=== PATIENT | female | born 1930 | race Caucasian/White ===

== ENCOUNTER → 2017-09-29 | Outpatient (CLI) | END | disposition home or self-care (01) ==

== ENCOUNTER → 2017-10-20 | Outpatient (CLI) | END | disposition home or self-care (01) ==

== ENCOUNTER → 2017-11-24 | Outpatient (CLI) | END | disposition home or self-care (01) ==

== ENCOUNTER 2017-12-04 08:58 | Inpatient (IN) | END 2017-12-07 18:53 | DRG 467 ==

== ENCOUNTER 2017-12-17 16:39 | Inpatient (IN) | END 2017-12-20 19:00 | DRG 208 ==

== ENCOUNTER 2017-12-25 17:25 | Inpatient (IN) | END 2017-12-30 18:15 | DRG 466 ==

== ENCOUNTER 2017-12-30 18:33 | Inpatient (IN) | END 2018-01-16 13:50 | disposition home health service (06) | DRG 559 ==

== ENCOUNTER → 2018-03-13 | Outpatient (CLI) | payer MEDICARE, BC, MEDICAID ==
[~2018-03-13] MED LIST: ACET325T33 PO; ASPI-817 PO; CELE100C PO; DOCU-144 PO; FERR324T11 PO; GABA100C14 PO; HYDR25TA6 PO; LISI-471 PO; MULT-876 PO; PANT40TA4 PO
--- NOTE | 2018-03-13 14:21 | PN ---
Date/Time of Note Date/Time of Note DATE: 03/13/18 TIME: 14:17 Outpatient Progress Note Chief Complaint 2-month postop HPI 87-year-old female presents today for 2-month postoperative appointment status post right total hip revision with placement of constrained liner on 12/30/2017. Patient continues with severe pain that she states occurs at night after a full day of activity. Patient states that she is unable to ambulate independently as she needs front wheeled walker. Pain is overall controlled during the day. No falls or injury since she was last seen. No calf pain. Review of Systems Const: No Fever, no chills, no Fatigue, normal appetite, no diaphoresis. Resp: No SOB, no wheezing, no chest pain. CV: No chest pain, no palpitaions, no VIDAL. Physical Exam General Appearance: well-developed, well-nourished, in no acute distress. Right hip: Well-healed surgical scar to the right hip. While sitting patient is able to flex an additional 10-15 degrees with 4/5 strength on resistance with give way weakness on flexion and extension. Abnormal gait with assisted ambulation using front-wheeled walker. Limping gait to the right side. When asked, patient states that pain is local to the greater trochanteric region and traveling along the IT band. Denies any groin pain. Imaging: X-ray of the Right hip performed on 03/13/18 showing all components appearing well aligned, attached and integrated to the bone. No signs of any lucency between metal and bone. Allergies Coded Allergies: No Known Drug Allergy (Verified Allergy, Unknown, 12/25/17) Family Hx Patient History: Parents 33 FATHER 32 MOTHER Unknown family medical history 33 FATHER 32 MOTHER Assessment/Plan Problems: (1) Status post revision of total hip replacement (2) History of total right hip replacement * Refill of oxycodone 5 mg 1 tab p.o. every 4 to 6 hours today.Number 45 tablets dispensed. * Ice modalities discussed. Activity modification as this seems to be inflammation Along the IT band. * Continue at-home therapy. Paperwork for temporary disability filled out today. * Patient will follow-up in 3 months but made aware that she may follow-up flakito ner if inflammation to the IT band is not resolved. Medications Home Meds Reported Medications Hydrochlorothiazide* (Hydrochlorothiazide*) 25 Mg Tab, 25 MG PO QPM, #30 TAB 12/25/17 Pantoprazole* (Pantoprazole*) 40 Mg Tablet.dr, 40 MG PO AC BREAKFAST, TAB 12/25/17 Gabapentin* (Gabapentin*) 100 Mg Capsule, 100 MG PO TID, #90 CAP 12/16/17 Multivit-Min/Iron Fum/Folic AC (Itzoa-Jkaqwpx-Wbqxguhe Tablet) 1 Each Tablet, 1 EACH PO DAILY, TAB 12/16/17 Ferrous Fumarate (Ferrous Fumarate) 324 Mg Tablet, 1 TAB PO BID, TAB 12/16/17 Docusate Sodium* (Colace*) 100 Mg Capsule, 100 MG PO BID, #60 CAP 12/16/17 Celecoxib* (Celebrex*) 100 Mg Capsule, 100 MG PO BID, CAP 12/16/17 Aspirin* (Aspirin* EC) 81 Mg Tablet.dr, 81 MG PO DAILY, TAB 12/16/17 Acetaminophen* (Tylenol*) 325 Mg Tablet, 650 MG PO Q4H PRN for PAIN LEVEL 1- 5/10, TAB AND FOR TEMP>100 12/16/17 Lisinopril* (Lisinopril*) 20 Mg Tablet, 40 MG PO DAILY, #30 TAB HOLD IF SBP<110 OR HR<60 12/16/17 LEIA AGGARWAL PA-C Mar 13, 2018 14:21
--- NOTE | 2018-03-16 08:05 | RADRPT ---
PROCEDURE: XR right Hip. CLINICAL INDICATION: Hip pain. TECHNIQUE: AP and frog leg lateral views of the right hip were obtained. COMPARISON: 02/06/2018 FINDINGS: There are stable postsurgical changes of total right hip arthroplasty. The hardware is intact and wel l aligned. The bone mineralization is diffusely decreased. No focal demineralization is identified ar ound the hip prosthesis. There are moderate degenerative changes of the left hip and bilateral sacroi liac joints along with degenerative changes in the lower lumbar spine and pubic symphysis. Vascular c alcifications are seen in the lower extremities. IMPRESSION: 1. Stable postsurgical changes of total right hip arthroplasty. RPTAT: AAEE Physician Maia Date Time Electronically viewed and signed by Physician Maia on 03/16/2018 08:04 RF/
== END | disposition home or self-care (01) ==
LOC: HKI 13:43
PROVIDERS: ATTEND Orthopaedic Surgery
DX: Z47.1 Aftercare following joint replacement surgery (principal); Z96.641 Presence of right artificial hip joint
CPT/HCPCS: 73502